=== PATIENT | female | born 1955 | race African-American/Black ===

== ENCOUNTER 2017-03-15 14:16 | Emergency (ER) | payer OTHER ==
[~2017-03-15] VITALS: Ht 147.3 cm; Wt 72.6 kg
[2017-03-15] MEDS ORDERED: SODIUM CHLORIDE 0.9% 1,000 ML IVB ONE (14:59)
[2017-03-15 15:23] LABS: Basophils # (auto) 0 uL; Basophils % (auto) 0.9 % (0.0-2.0); Eosinophils # (auto) 0.1 uL; Eosinophils % (auto) 1.4 % (0.0-7.0); Hematocrit 37.7 % (36.0-46.0); Hemoglobin 12.3 g/dL (12.2-16.2); Lymphocytes # (auto) 2.7 uL; Lymphocytes % (auto) 52.2 % (10.0-50.0); Mean Corpuscular Hemoglobin 22.9 pg (28.0-32.0); Mean Corpuscular Hgb Conc. 32.6 g/dL (32.0-36.0); Mean Corpuscular Volume 70.2 fL (80.0-100.0); Mean Platelet Volume 8.1 fL (6.9-10.8); Monocytes # (auto) 0.6 uL; Monocytes % (auto) 11.9 % (0.0-12.0); Neutrophils # (auto) 1.7 uL; Neutrophils % (auto) 33.6 % (37.0-80.0); Platelet Count (auto) 227 10^3/uL (140-450); Red Cell Distribution Width 15.1 % (11.8-14.3); White Blood Cell 5.1 10^3/uL (4.4-10.8)
[2017-03-15 15:35] LABS: Albumin 3.4 g/dL (3.4-5.0); Anion Gap 4 (5-15); Aspartate Aminotransferase 15 U/L (15-37); BUN/Creatinine Ratio 14.4; Blood Urea Nitrogen 16 mg/dL (7-18); Calcium 8.5 mg/dL (8.5-10.1); Carbon Dioxide 27 mmol/L (21-32); Chloride 112 mmol/L (98-107); GFR African American 64 mL/min; GFR Non-African American 53 mL/min; Glucose 121 mg/dL (74-106); Potassium 4.1 mmol/L (3.5-5.1); Sodium 143 mmol/L (136-145)
[2017-03-15 15:40] LABS: Alkaline Phosphatase 82 U/L (45-117); Bilirubin, Total 0.3 mg/dL (0.2-1.0); Total Protein 7.2 g/dL (6.4-8.2)
[2017-03-15 17:12] VITALS: BP 126/76
[2017-03-15 17:46] LABS: Burr Cells FEW
[2017-03-15 17:51] LABS: Sickle Cells FEW; Tear Drop Cells FEW
[2017-03-15 17:52] LABS: Hypochromia Moderate; Microcytosis Marked
[2017-03-15 17:53] LABS: Ovalocytes FEW; Platelet Estimate Adequate
== END 2017-03-15 17:54 | disposition home or self-care (01) ==
LOC: ER 14:16
DX: E86.0 Dehydration (principal); T67.5XXA Heat exhaustion, unspecified, initial encounter; I10 Essential (primary) hypertension; F17.210 Nicotine dependence, cigarettes, uncomplicated; F12.10 Cannabis abuse, uncomplicated
CPT/HCPCS: 36415; 70450; 71010; 80053; 80320; 83735; 84484; 85025; 93005; 94761; 96360

== ENCOUNTER 2020-03-27 23:15 | Emergency (ER) | payer OTHER ==
[~2020-03-27] VITALS: Ht 167.6 cm; Wt 85.3 kg
[2020-03-27 23:46] LABS: Basophils # (auto) 0 10 ^3/uL (0-0.2); Eosinophils # (auto) 0 10 ^3/uL (0-0.8); Monocytes # (auto) 0.8 10 ^3/uL (0-1.3); Neutrophils # (auto) 3.8 10 ^3/uL (1.6-8.6)
[2020-03-27 23:48] LABS: Basophils % (auto) 0.5 % (0.0-2.0); Eosinophils % (auto) 0.5 % (0.0-7.0); Hematocrit 33.4 % (36.0-46.0); Lymphocytes # (auto) 1.7 10 ^3/uL (0.4-5.4); Lymphocytes % (auto) 26.4 % (10.0-50.0); Mean Corpuscular Hemoglobin 22.6 pg (28.0-32.0); Mean Corpuscular Hgb Conc. 32.9 g/dL (32.0-36.0); Mean Corpuscular Volume 68.6 fL (80.0-100.0); Monocytes % (auto) 12.5 % (0.0-12.0); Neutrophils % (auto) 60.1 % (37.0-80.0); Nucleated Red Blood Cells % 0.3 %; Platelet Count (auto) 194 10^3/uL (140-450); Red Blood Cells 4.87 10^6/uL (4.0-5.20); Red Cell Distribution Width 15.1 % (11.8-14.3); White Blood Cell 6.4 10^3/uL (4.4-10.8)
[2020-03-28 00:12] LABS: Chloride 112 mmol/L (98-107); Potassium 3.7 mmol/L (3.5-5.1); Sodium 142 mmol/L (136-145)
[2020-03-28 00:19] LABS: Alanine Aminotransferase 25 U/L (13-56); Albumin 2.5 g/dL (3.4-5.0); Alkaline Phosphatase 63 U/L (45-117); Anion Gap 5 (5-15); Aspartate Aminotransferase 21 U/L (15-37); BUN/Creatinine Ratio 13.5; Bilirubin, Total 0.1 mg/dL (0.2-1.0); Blood Urea Nitrogen 21 mg/dL (7-18); Calcium 7.8 mg/dL (8.5-10.1); Carbon Dioxide 25 mmol/L (21-32); GFR African American 43 mL/min; GFR Non-African American 35 mL/min; Glucose 114 mg/dL (74-106)
[2020-03-28] MEDS ORDERED: SODIUM CHLORIDE 0.9% 500 ML IV ONE (02:45)
[2020-03-28 04:00] VITALS: BP 107/64
== END 2020-03-28 04:15 | disposition home or self-care (01) ==
LOC: EDBD 23:15 → ER 23:39
DX: R55 Syncope and collapse (principal); I95.89 Other hypotension; I10 Essential (primary) hypertension; F17.210 Nicotine dependence, cigarettes, uncomplicated; Z90.49 Acquired absence of other specified parts of digestive tract; Z90.710 Acquired absence of both cervix and uterus
CPT/HCPCS: 36415; 70450; 71045; 80053; 82962; 83880; 84484; 85025; 96360; 99285; J7030

== ENCOUNTER 2024-07-03 17:42 | Emergency (ER) | payer OTHER ==
[~2024-07-03] VITALS: Ht 152.4 cm; Wt 59.0 kg
[2024-07-03] MEDS: ACETAMINOPHEN 325 MG TAB PO ONE (18:00)
[2024-07-03] MEDS: SODIUM CHLORIDE 0.9% 1,000 ML IV ONE ×2 (18:15→18:25)
--- NOTE | 2024-07-03 18:57 | ED.PDOC ---
History of Present Illness HPI Comments 69Y F with PMHx HTN presents to ED via EMS for chief complaint flu-like symptoms. Pt reports diarrhea and poor appetite. Pt denies chest pain, SOB, nausea, and vomiting. Pt denies sick contact. Upon ED arrival, pt is febrile with 103.8F oral temp and tachycardic with HR 145. No other symptoms reported. Chief Complaint: Flu like Time Seen by MD: 18:50 Primary Care Provider: NONE Reviewed Notes: Nurses Notes, Color Control Operator Notes, Medications, Allergies Allergies: Coded Allergies: NO KNOWN ALLERGIES (Unverified , 03/15/17) Information Source: Patient, Emergency Med Personnel Mode of Arrival: EMS Severity: Moderate Timing: Days Duration: Since onset Prehospital treatment: None Past Medical History PAST MEDICAL HISTORY: Anxiety, Depression, HTN Surgical History: Cholecystectomy, Hysterectomy LOGGER History: No Pertinent LOGGER History Family History Family History: Reviewed,noncontributory to illness Social History Smoker: Cigarettes Alcohol: Occasionally Drugs: Marijuana Lives In: Home Constitutional: denies: chills, diaphoresis, fatigue, fever, malaise, sweats, weakness, others EENTM: denies: blurred vision, double vision, ear bleeding, ear discharge, ear drainage, ear pain, ear ringing, eye pain, eye redness, hearing loss, mouth pain, mouth swelling, nasal discharge, nose bleeding, nose congestion, nose pain, photophobia, tearing, throat pain, throat swelling, voice changes, others Respiratory: denies: cough, hemoptysis, orthopnea, SOB at rest, shortness of breath, SOB with excertion, stridor, wheezing, others Cardiovascular: denies: chest pain, dizzy spells, diaphoresis, Dyspnea on exertion, edema, irregular heart beat, left arm pain, lightheadedness, palpitations, PND, syncope, others Gastrointestinal: reports: diarrhea, poor appetite; denies: abdomen distended, abdominal pain, blood streaked bowels, constipated, dysphagia, difficulty swallowing, hematemesis, melena, nausea, poor fluid intake, rectal bleeding, rectal pain, vomiting, others Genitourinary: denies: abnormal vagina bleeding, burning, dyspareunia, dysuria, flank pain, frequency, hematuria, incontinence, pain, , vagina discharge, urgency, others Neurological: denies: dizziness, fainting, headache, left sided numbness, left sided weakness, numbness, paresthesia, pre-existing deficit, right sided numbness, right sided weakness, seizure, speech problems, tingling, tremors, weakness, others Musculoskeletal: denies: back pain, gout, joint pain, joint swelling, muscle pain, muscle stiffness, neck pain, others Integumetry: denies: bruises, change in color, change in hair/nails, dryness, laceration, lesions, lumps, rash, wounds, others Allergic/Immunocompromised: denies: Difficulty Healing, Frequent Infections, Hives, Itching, others Hematologic/Lymphatic: denies: anemia, blood clots, easy bleeding, easy bruising, swollen glands, others Endocrine: denies: excessive hunger, excessive sweating, excessive thirst, excessive urination, flushing, intolerance to cold, intolerance to heat, unexplained weight gain, unexplained weight loss, others Psychiatric: denies: anxiety, bipolar disorder, depression, hopeless, panic disorder, schizophrenia, sleepless, suicidal, others All Other Systems: Reviewed and Negative Physical Exam General Appearance: Mild Distress, Normal HEENT: Normal ENT Inspection, Pharynx Normal, TMs Normal Neck: Full Range of Motion, Non-Tender, Normal, Normal Inspection Respiratory: Chest Non-Tender, Lungs Clear, No Accessory Muscle Use, Other (Mild respiratory distress, scattered rhonchi throughout) Cardiovascular: No Edema, No JVD, No Murmur, No Gallop, Normal Peripheral Pulses, Regular Rate/Rhythm Breast Exam: Deferred Gastrointestinal: No Organomegaly, Non Tender, No Pulsatile Mass, Normal Bowel Sounds, Soft Genitalia: Deferred Pelvic: Deferred Rectal: Deferred Extremities: No calf tenderness, Normal capillary refill, Normal inspection, Normal range of motion, Non-tender, No pedal edema Musculoskeletal : Apperance: Normal Neurologic: Alert, 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 Was a procedure done?: No Differential Dx Considerations may include: influenza, covid, pneumonia X-Ray, Labs, Meds, VS Vital Signs Date Time Temp Pulse Resp B/P (MAP) Pulse Ox O2 Delivery O2 Flow Rate FiO2 07/03/24 19:00 100.9 07/03/24 18:00 103.8 07/03/24 18:00 145 17 95 Room Air 07/03/24 18:00 103.8 145 17 126/80 (95) 95 103.8 07/03/24 17:58 103.8 118 20 145/85 (105) 95 Lab Test 07/03/24 21:12 07/03/24 19:12 07/03/24 18:15 Range/Units Lactic Acid Level Pending 2.3 *H 0.4-2.0 mmol/L White Blood Count 6.9 4.4-10.8 10^3/uL Red Blood Count 5.79 H 4.0-5.20 10^6/uL Hemoglobin 13.0 12.2-16.2 g/dL Hematocrit 39.3 36.0-46.0 % Mean Corpuscular Volume 67.9 L 80.0-100.0 fL Mean Corpuscular Hemoglobin 22.4 L 28.0-32.0 pg Mean Corpuscular Hemoglobin Concent 33.0 32.0-36.0 g/dL Red Cell Distribution Width 14.8 H 11.8-14.3 % Platelet Count 174 140-450 10^3/uL Mean Platelet Volume 8.6 6.9-10.8 fL Neutrophils (%) (Auto) 71.6 37.0-80.0 % Lymphocytes (%) (Auto) 15.3 10.0-50.0 % Monocytes (%) (Auto) 12.6 H 0.0-12.0 % Eosinophils (%) (Auto) 0.0 0.0-7.0 % Basophils (%) (Auto) 0.5 0.0-2.0 % Neutrophils # (Auto) 4.9 1.6-8.6 10 ^3/uL Lymphocytes # (Auto) 1.1 0.4-5.4 10 ^3/uL Monocytes # (Auto) 0.9 0-1.3 10 ^3/uL Eosinophils # (Auto) 0 0-0.8 10 ^3/uL Basophils # (Auto) 0 0-0.2 10 ^3/uL Nucleated Red Blood Cells 0.1 % Sodium Level 134 L 136-145 mmol/L Potassium Level 3.4 L 3.5-5.1 mmol/L Chloride Level 104 98-107 mmol/L Carbon Dioxide Level 22 20-31 mmol/L Anion Gap 8 5-15 Blood Urea Nitrogen 11 9-23 mg/dL Creatinine 1.41 H 0.550-1.02 mg/dL Glomerular Filtration Rate Calc 40 >90 mL/min BUN/Creatinine Ratio 7.8 L 10.0-20.0 Serum Glucose 108 H 74-106 mg/dL Calcium Level 8.8 8.7-10.4 mg/dL Influenza Type A Antigen Negative Negative Influenza Type B Antigen Negative Negative SARS-CoV-2 Antigen (Rapid) Negative NEGATIVE Current Medications Medications (Trade) Dose Ordered Sig/Waqas Route Start Time Stop Time Status Last Admin Acetaminophen (Tylenol Tablet) 650 mg ONCE ONCE PO 07/03/24 18:00 07/03/24 18:01 DC 07/03/24 18:00 Sodium Chloride 1,000 ml @ 1,000 mls/hr Q1H ONCE IV 07/03/24 18:15 07/03/24 19:14 DC 07/03/24 18:15 Ceftriaxone Sodium 50 ml @ 100 mls/hr ONCE ONCE IV 07/03/24 20:15 07/03/24 20:44 DC 07/03/24 21:19 Azithromycin 250 ml @ 125 mls/hr ONCE ONCE IV 07/03/24 20:15 07/03/24 22:14 07/03/24 21:21 [place] [id number] Ph: [phone] DIAGNOSTIC IMAGING Diagnostic Imaging Report : [id number] Signed PATIENT: MARTHA EMERSON ACCT: [id number] UNIT: [id number] : 1955 LOC: ER ROOM / BED: / AGE / SEX: 69 / F ADM STATUS: REG ER SERVICE 16 ORDERING PHYSICIAN: LELAND ZHU MD PROCEDURE(s): CXR1 - CHEST XRAY 1 VIEW REASON: sob ORDER NUMBER(s): [id number], ACCESSION NUMBER(s): [id number] CHEST RADIOGRAPH Indication: sob Technique: Single frontal view of the chest was obtained COMPARISON: None FINDINGS: Lines and Tubes: None Lungs: Clear Pleura: No effusion. No pneumothorax. Cardiomediastinal contours: Unremarkable Bones: Unremarkable IMPRESSION: 1. No acute disease. ATED BY: MAGGY HARPER MD DICTATED DATE/TIME: 07/03/241854 SIGNED BY: MAGGY HARPER MD SIGNED DATE/TIME: 07/03/241854 CC: X-Ray, Labs, Meds, VS Comment Patient presentation today is most consistent with new onset of pneumonia. Patient also noted to be febrile, tachycardic, and tired appearing. Lactic acid also elevated. Patient also with a notable NEYDA. Patient was started on fluids and antibiotics to cover for pneumonia after cultures were drawn. I discussed the case with the [facility] doc who accepted the patient for transfer. Patient in agreement with the plan. Patient is in agreement with the plan and all questions answered. Considered CHF exacerbation, asthma/COPD, anaphylaxis, pulmonary embolism, DKA, pneumothorax, tamponade, but consider these to be less likely based on history/physical/evaluation as above. Time of 1ST Reevaluation: 19:20 Reevaluation 1ST: Unchanged Patient Education/Counseling: Diagnosis, Treatment Family Education/Counseling: No Family Present Departure 1 Departure Time of Disposition: 21:58 Impression: Primary Impression: Pneumonia Additional Impressions: Sepsis NEYDA (acute kidney injury) Disposition: 02 SHORT TERM HOSPITAL Admit to: Tele Condition: Guarded Critical Care Note Critical Care Time?: No Stability Stability form required: Yes Initial call: 21:03 Stable for transfer: Intended for transfer (Health plan request transfer) Heart Score Heart Score: Heart Score Response (Comments) Value History N/A 0 EKG N/A 0 Age N/A 0 Risk Factors N/A 0 Troponin N/A 0 Total 0 I personally scribed for LELAND ZHU MD ([email or web address]) on 07/03/24 at 18:57. Electronically submitted by Edith Weston ([email or web address]). I personally scribed for LELAND ZHU MD ([email or web address]) on 07/03/24 at 19:00. Electronically submitted by Edith Weston ([email or web address]). LELAND ZHU MD Jul 03, 2024 18:57
[2024-07-03 19:19] LABS: COVID19 ANTIGEN SOFIA FIA NEGATIVE (NEGATIVE); Rapid Influenza A Negative (Negative); Rapid Influenza B Negative (Negative)
[2024-07-03 19:38] LABS: Anion Gap 8 (5-15); Carbon Dioxide 22 mmol/L (20-31); Chloride 104 mmol/L (98-107)
[2024-07-03 19:39] LABS: Calcium 8.8 mg/dL (8.7-10.4)
[2024-07-03 19:41] LABS: Basophils # (auto) 0 10 ^3/uL (0-0.2); Eosinophils # (auto) 0 10 ^3/uL (0-0.8); Neutrophils # (auto) 4.9 10 ^3/uL (1.6-8.6); White Blood Cell 6.9 10^3/uL (4.4-10.8)
[2024-07-03 19:43] LABS: Basophils % (auto) 0.5 % (0.0-2.0); Hematocrit 39.3 % (36.0-46.0); Lymphocytes # (auto) 1.1 10 ^3/uL (0.4-5.4); Lymphocytes % (auto) 15.3 % (10.0-50.0); Mean Corpuscular Hemoglobin 22.4 pg (28.0-32.0); Mean Corpuscular Volume 67.9 fL (80.0-100.0); Monocytes # (auto) 0.9 10 ^3/uL (0-1.3); Monocytes % (auto) 12.6 % (0.0-12.0); Neutrophils % (auto) 71.6 % (37.0-80.0); Nucleated Red Blood Cells % 0.1 %; Platelet Count (auto) 174 10^3/uL (140-450); Red Blood Cells 5.79 10^6/uL (4.0-5.20); Red Cell Distribution Width 14.8 % (11.8-14.3)
[2024-07-03 19:44] LABS: BUN/Creatinine Ratio 7.8 (10.0-20.0); Blood Urea Nitrogen 11 mg/dL (9-23)
[2024-07-03 19:54] LABS: Glucose 108 mg/dL (74-106); Potassium 3.4 mmol/L (3.5-5.1); Sodium 134 mmol/L (136-145)
[2024-07-03 19:56] LABS: Lactic Acid w/Reflex 2.3 mmol/L (0.4-2.0)
[2024-07-03] MEDS: cefTRIAXone 1GM/50ML D5W 50 ML IV ONE (21:19)
[2024-07-03] MEDS: AZITHROMYCIN 500MG/ 250ML 250 ML IV ONE (21:21)
[2024-07-04 01:11] VITALS: BP 127/71; PULSE 118; RESP 16; TEMP 101.1; O2SAT 98
== END 2024-07-04 01:44 | disposition short-term general hospital (02) ==
LOC: EDBD 17:42 → ER 17:42
DX: A41.9 Sepsis, unspecified organism (principal); J18.9 Pneumonia, unspecified organism; N17.9 Acute kidney failure, unspecified; I10 Essential (primary) hypertension; F17.210 Nicotine dependence, cigarettes, uncomplicated; Z90.49 Acquired absence of other specified parts of digestive tract; Z90.710 Acquired absence of both cervix and uterus; Z20.822 Contact with and (suspected) exposure to COVID-19
CPT/HCPCS: 36415; 71045; 80048; 83605; 85025; 87040; 87426; 87804; 96361; 96365; 96368; 99285; J0456; J0696